=== PATIENT | male | born 1945 | race Caucasian/White ===

== ENCOUNTER 2017-05-22 16:35 | Emergency (ER) | payer OTHER ==
[2017-05-22] MEDS ORDERED: NORMAL SALINE 1,000 ML IV ONE (17:10)
--- NOTE | 2017-05-22 17:19 | ERNOTE ---
Neuro HPI ER Record Date of Service: 05/22/17 Presenting Symptoms: other Time Seen by Provider: 05/22/17 17:01 Source: patient Exam Limitations: no limitations Immunizations: IMMUNIZATION HX Immunizations Up to Date Yes History of Influenza Vaccine Yes Hx Pneumococcal Vaccination More Information Required Allergies/Adverse Reactions: Allergies Allergy/AdvReac Type Severity Reaction Status Date / Time No Known Allergies Allergy Verified 05/22/17 17:03 Home Medications: HOME MEDICATIONS Acetaminophen 325 mg PO TID PRN 05/22/17 [Last Taken Unknown] Aspirin 81 mg PO DAILY 05/22/17 [Last Taken Unknown] Carbidopa/Levodopa Cr 50/200 [Sinemet Cr 50/200] 1 tab PO TID 05/22/17 [Last Taken Unknown] Diphenhydramine HCl 200 mg PO HS 05/22/17 [Last Taken Unknown] Furosemide 20 mg PO DAILY 05/22/17 [Last Taken Unknown] Lisinopril [Prinivil] 10 mg PO DAILY 05/22/17 [Last Taken Unknown] Sennosides [Senna Lax] 8.6 mg PO BID PRN 05/22/17 [Last Taken Unknown] Sertraline HCl [Zoloft] 50 mg PO DAILY 05/22/17 [Last Taken Unknown] - History of Present Illness Narrative: Pt. comes in with c/o [facility] multiple two before coming in and the transport officers note multiple seizures during transport. Staff reports that pt. has not been eating lately due to being changed to pureed diet. Pt. denies any CP, SOB, fever, chills, recent illness or injury. Review of Systems - Review of Systems Constitutional: Present: weakness, fatigue. Absent: recent illness, fever, chills, malaise EYE: Present: no symptoms reported ENT: Present: no symptoms reported Respiratory: Present: no symptoms reported. Absent: shortness of breath, cough , wheezing Cardiology: Present: no symptoms reported. Absent: chest pain, palpitations, edema Gastrointestinal/Abdominal: Present: no symptoms reported. Absent: nausea, vomiting, diarrhea Musculoskeletal: Present: no symptoms reported. Absent: back pain, neck pain, joint pain Skin: Present: no symptoms reported. Absent: rash, change in color Neurological: Present: seizure, tremors. Absent: headache, dizziness/light- headedness, weakness, numbness, tingling All Other Systems: All systems neg except as marked - Patient's Past Medical History Patient History - Medical: Arthritis, Dementia, Renal Disease, Seizures, Other Patient History - Cardiac/Respiratory: CHF Patient History - Cancer: No Hx of Cancer Patient History - Surgical Procedures: Cataracts Patient History - Other: None - Social History Living Situations: other Abuse History: No History of abuse Psych History: Hx of Depression, Current tx/ever been on anti-depressants or anti-anxiety meds Smoking Status: Unknown if ever smoked Alcohol Use: none Drug Use: none - Immunizations Immunizations Up to Date: Yes Hx Pneumococcal Vaccination: More Information Required to Determine History of Influenza Vaccine: Yes Physical Exam - Physical Exam General Appearance: Present: wd/wn, alert, no apparent distress Head Exam: Present: normal inspection, no evidence of injury Eye Exam: Normal inspection: bilateral, PERRL: bilateral, EOMI: bilateral Ears, Nose, Throat: Present: normal ENT inspection, normal pharynx Neck: Present: normal inspection, nontender. Absent: lymphadenopathy (R), lymphadenopathy (L) Respiratory: Present: no respiratory distress, normal breath sounds, no accessory muscle use, chest nontender, lungs clear Cardiovascular/Chest: Present: regular rate, rhythm, no murmur, normal peripheral pulses Gastrointestinal/Abdominal: Present: normal bowel sounds, nontender, nondistended, soft, no organomegaly Extremity Exam: Present: normal inspection, non-tender, normal range of motion, no edema Neurological Exam: Present: alert, normal mood/affect, other - parkinonian weakness and tremors Skin Exam: Present: cool/dry, pallor ED Progress - Date and Time Seen: Date and Time: 05/22/17 18:[address] Butcher at [facility] as pt. is [facility] and she accepts transfer. - Results and Orders Patient's Lab Results:: I have reviewed the patient's lab results. - Vital Signs Patient's Vital Signs:: I have reviewed the patient's vital signs. Vital Signs: Vital Signs 05/22/17 16:46 Temperature 36.2 C L Pulse Rate 70 Respiratory 13 Rate Blood Pressure 102/47 - CT/Ultrasound CT/Ultrasound Narrative: CT head without any acute changes but with chronic white matter disease. - Progress/Reassessment Chief Complaint: Seizure Activity Departure Clinical Impression: Seizures, Dehydration Acute renal failure Qualifiers: Acute renal failure type: unspecified Qualified Code(s): N17.9 - Acute kidney failure, unspecified - Departure Disposition: [facility] Condition: Serious
[2017-05-22 17:23] LABS: Hematocrit 42.2 % (42.0-52.0); Mean Cell Volume 93.6 fl (78-100); Mean Corpuscular Hgb Conc 33.2 g/dl (32-36); Mean Platelet Volume 12.2 fl (6.0-9.5); Neutrophil # 6.9 K/mm3 (1.3-6.0); Neutrophil % 79.8 % (42-75.0); Platelet Count 138 K/mm3 (150-450); Red Blood Count 4.51 M/mm3 (4.7-6.0); Red Cell Distribution Width 13.4 % (11.5-14.0); White Blood Count 8.6 K/mm3 (4.0-10.5)
[2017-05-22 17:47] LABS: Albumin * 3.8 gm/dl (3.4-5.0); Anion Gap 11.8 mmol/L (6.8-13.8); BUN/Creatinine Ratio 17.9 (9.0-21.6); Bilirubin, Total 0.5 mg/dL (0.0-1.1); Ca. Corrected For Albumin 9.5 mg/dL (8.4-10.2); Calcium * 9.7 mg/dL (7.9-10.9); Carbon Dioxide 30.1 mmol/L (24-32.6); Potassium 3.9 mmol/L (3.4-4.6); Total Protein 7.6 gm/dL (6.2-8.2)
[2017-05-22 18:08] LABS: Urine Bilirubin Negative (NEGATIVE); Urine Blood Negative /ul (NEGATIVE); Urine Ketone 5 mg/dL (NEGATIVE); Urine Nitrite Negative (NEGATIVE); Urine Protein 15 mg/dL (NEGATIVE); Urine Specific Gravity 1.015 SP.GR. (1.005-1.030); Urine Urobilinogen Normal (NORMAL)
[2017-05-22 18:21] LABS: Urine Appearance Clear; Urine Bacteria 1+; Urine Color Yellow; Urine Fine Granular Cast 0-5 /LPF; Urine Hyaline Cast 0-5 /LPF; Urine RBC TRACE /hpf (0-5); Urine WBC TRACE /hpf (0-5)
[2017-05-22 18:50] VITALS: BP 136/61
== END 2017-05-22 19:07 | disposition short-term general hospital (02) ==
LOC: ER 16:35
DX: E86.0 Dehydration (principal); N17.9 Acute kidney failure, unspecified; R56.9 Unspecified convulsions; F41.9 Anxiety disorder, unspecified; F32.9 Major depressive disorder, single episode, unspecified; I50.9 Heart failure, unspecified

== ENCOUNTER 2017-05-28 09:29 | Emergency (ER) | payer OTHER ==
[2017-05-28] MEDS ORDERED: NORMAL SALINE 1,000 ML IV ONE (09:35)
[2017-05-28 09:58] LABS: Hematocrit 39.5 % (42.0-52.0); Hemoglobin 12.9 gm/dL (13.5-18.0); Mean Cell Volume 92.7 fl (78-100); Mean Corpuscular Hemoglobin 30.3 pg (27-31); Mean Corpuscular Hgb Conc 32.7 g/dl (32-36); Mean Platelet Volume 12.4 fl (6.0-9.5); Platelet Count 124 K/mm3 (150-450); Red Blood Count 4.26 M/mm3 (4.7-6.0); Red Cell Distribution Width 13.4 % (11.5-14.0); White Blood Count 20.1 K/mm3 (4.0-10.5)
[2017-05-28 10:07] LABS: Albumin * 3.1 gm/dl (3.4-5.0); Anion Gap 19.1 mmol/L (6.8-13.8); BUN/Creatinine Ratio 20.9 (9.0-21.6); Bilirubin, Total 0.6 mg/dL (0.0-1.1); Ca. Corrected For Albumin 9.5 mg/dL (8.4-10.2); Calcium * 9.1 mg/dL (7.9-10.9); Carbon Dioxide 22.1 mmol/L (24-32.6); Potassium 4.2 mmol/L (3.4-4.6); Total Protein 6.7 gm/dL (6.2-8.2)
[2017-05-28 10:15] LABS: Band 26 % (0-2.0); Dohle Bodies 1+; Lymphocyte 3 % (20-51); Neutrophil 71 % (42-75); Neutrophil # 14.3 K/mm3 (1.3-6.0); Platelet Estimate Normal (NORMAL); Total Cells Counted 100; Toxic Granulation 2+
[2017-05-28] MEDS ORDERED: DIATRIZOATE MEGLUMINE, SODIUM 30 ML BTL ONE (10:33)
--- NOTE | 2017-05-28 10:52 | ERNOTE ---
Abdominal HPI - General Chief Complaint: Abdominal Pain Time Seen by Provider: 05/28/17 09:59 - Immun/Allergies/Home Medications Immunizatons: IMMUNIZATION HX Immunizations Up to Date Yes History of Influenza Vaccine No Hx Pneumococcal Vaccination No Allergies/Adverse Reactions: Allergies No Known Allergies Allergy (Verified 05/28/17 09:43) Home Medications: HOME MEDICATIONS Acetaminophen 325 mg PO TID PRN 05/22/17 [Last Taken Unknown] Aspirin 81 mg PO DAILY 05/22/17 [Last Taken Unknown] Carbidopa/Levodopa Cr 50/200 [Sinemet Cr 50/200] 1 tab PO TID 05/22/17 [Last Taken Unknown] Diphenhydramine HCl 200 mg PO HS 05/22/17 [Last Taken Unknown] Furosemide 20 mg PO DAILY 05/22/17 [Last Taken Unknown] Lisinopril [Prinivil] 10 mg PO DAILY 05/22/17 [Last Taken Unknown] Sennosides [Senna Lax] 8.6 mg PO BID PRN 05/22/17 [Last Taken Unknown] Sertraline HCl [Zoloft] 50 mg PO DAILY 05/22/17 [Last Taken Unknown] Review of Systems - Narrative Narrative: Patient is a very poor historian he has Parkinson and he does not talk about his symptoms when pressed he complains of belly pain. - Patient's Past Medical History Patient History - Medical: Arthritis, Dementia, Renal Disease, Seizures, Other Patient History - Cardiac/Respiratory: CHF Patient History - Cancer: No Hx of Cancer Patient History - Surgical Procedures: Cataracts Patient History - Other: None - Social History Living Situations: other Abuse History: No History of abuse Psych History: Hx of Depression, Current tx/ever been on anti-depressants or anti-anxiety meds Smoking Status: Unknown if ever smoked Alcohol Use: none Drug Use: none - Immunizations Immunizations Up to Date: Yes Hx Pneumococcal Vaccination: No History of Influenza Vaccine: No Physical Exam - Physical Exam General Appearance: Present: other - thin appearing frail male appears older than stated age Head Exam: Present: normal inspection, no evidence of injury, other - patient has a flat affect and does not communicate or speak with this examiner however he speaks freely with the nurse. Eye Exam: Normal inspection: bilateral, PERRL: bilateral, EOMI: bilateral - patient does have bilateral conjunctival injection Ears, Nose, Throat: Present: normal ENT inspection Neck: Present: normal inspection, nontender Respiratory: Present: no respiratory distress, normal breath sounds, no accessory muscle use, chest nontender, lungs clear Cardiovascular/Chest: Present: regular rate, rhythm, no murmur, normal peripheral pulses Gastrointestinal/Abdominal: Present: normal bowel sounds, soft, other - belly is soft however patient does have diffuse abdominal tenderness on palpation this is not an acute abdomen patient has no rebound tenderness Extremity Exam: Present: normal inspection, other - patient has handcuffs on however extremities appear within normal limits ED Progress - Results and Orders Patient's Lab Results:: I have reviewed the patient's lab results. - Vital Signs Patient's Vital Signs:: I have reviewed the patient's vital signs. Vital Signs: Vital Signs 05/28/17 05/28/17 09:31 10:29 Temperature 36.8 C Pulse Rate 72 79 Respiratory 16 17 Rate Blood Pressure 97/45 114/58 O2 Sat by Pulse 100 100 Oximetry - EKG EKG: NSR - CT/Ultrasound CT/Ultrasound Narrative: CT scan reveals a thickness of the bowel wall in the area of the sigmoid colon - Progress/Reassessment Chief Complaint: Abdominal Pain Plan - Plan Plan: This patient's symptoms and blood tests reveals that he has sepsis. His lactic acid was initially few 0.7 then 5.7 then 6.4. His white count is elevated at [address] scan reveals sigmoid colitis at this time [facility] consulted and Dr. Charlton except the patient to their facility prior to discharge from this facility patient's blood pressure drops to 81/43 and a Levophed drip was initiated. Departure Clinical Impression: Sepsis Qualifiers: Sepsis type: sepsis due to unspecified organism Qualified Code(s): A41.9 - Sepsis, unspecified organism - Departure Disposition: [facility] Condition: Fair
[2017-05-28] MEDS ORDERED: DIATRIZOATE MEGLUMINE, SODIUM 30 ML BTL PO ONE (11:15)
[2017-05-28 11:21] LABS: Urine Bilirubin Negative (NEGATIVE); Urine Blood Negative /ul (NEGATIVE); Urine Ketone 5 mg/dL (NEGATIVE); Urine Nitrite Negative (NEGATIVE); Urine Protein 15 mg/dL (NEGATIVE); Urine Urobilinogen Normal (NORMAL)
[2017-05-28 11:29] LABS: Urine Appearance Clear; Urine Bacteria 2+; Urine Color Yellow; Urine RBC None Seen /hpf (0-5); Urine WBC 0-5 /hpf (0-5)
[2017-05-28 11:48] LABS: Cocaine Ur Negative (NEGATIVE); Urine Barbiturate Negative (NEGATIVE); Urine Benzodiazepines Negative (NEGATIVE); Urine Opiates Negative (NEGATIVE); Urine PCP Negative (NEGATIVE); Urine THC Negative (NEGATIVE)
[2017-05-28] MEDS: NORMAL SALINE 1,000 ML IV SCH ×3 (12:01→15:05)
[2017-05-28] MEDS ORDERED: NOREPINEPHRINE BITARTRATE 4 MG in DEXTROSE 5 % IN WATER 496 ML IV PRN ×2 (14:31)
[2017-05-28] MEDS ORDERED: CIPROFLOXACIN IN 5 % DEXTROSE 400 MG/200 ML BAG IV SCH (14:45)
[2017-05-28] MEDS ORDERED: metroNIDAZOLE/SODIUM CHLORIDE 500 MG/100 ML BAG IV SCH (14:45)
[2017-05-28 20:17] VITALS: BP 125/77
== END 2017-05-28 16:30 | disposition short-term general hospital (02) ==
LOC: ER 09:29
PROC: 0T9B70Z Drainage of Bladder with Drainage Device, Via Natural or Artificial Opening (ICD-10-PCS; principal; 2017-05-28)
DX: A41.9 Sepsis, unspecified organism (principal)